=== PATIENT | male | born 1985 | race Caucasian/White ===

== ENCOUNTER 2023-05-01 13:44 | Emergency (ER) | payer BC, SELFPAY ==
[2023-05-01] VITALS (8 sets, daily range): BP systolic 97–114; BP diastolic 61–80; PULSE 62–74; RESP 16–18; TEMP 36.1; O2SAT 91–99; BMI 27.3
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
[2023-05-01 14:33] LABS: Basophils Percent Auto 0.5 % (0.0-3.0); Eosinophils Percent Auto 1.6 % (0.0-7.0); Hematocrit 47.5 % (37.0-53.0); Hemoglobin* 16.1 gm/dL (13.5-17.5); Immature Granulocytes Pct Auto 0.4 %; Lymphocytes Percent Auto 12.3 % (20-44); Mean Corpuscular HGB Conc 34 gm/dL (32-36); Mean Corpuscular Hemoglobin 27 pg (26-34); Mean Corpuscular Volume 80 fL (80-100); Monocytes Percent Auto 6.2 % (0.0-11.0); Platelet Count* 156 K/uL (140-440); RDW Coefficient of Variation % 13.2 % (11.5-15.5); Red Blood Count 5.95 m/uL (4.30-5.90); White Blood Count* 11.43 K/uL (4.50-11.00)
[2023-05-01 14:41] LABS: Slide Review Reflex No
[2023-05-01 14:46] LABS: Chloride* 105 mmol/L (96-114); Potassium* 3.7 mmol/L (3.6-5.1); Sodium* 136 mmol/L (135-149)
[2023-05-01 14:49] LABS: Carbon Dioxide* 21 mmol/L (20-32); Creatinine* 0.9 mg/dL (0.5-1.5); Est. Creatinine Clearance* 114.91; Estimated Glomerular Filt Rate 112 ml/min; Glucose* 123 mg/dL (60-115)
[2023-05-01 14:50] LABS: Blood Urea Nitrogen* 15 mg/dL (5-24); Calcium* 8.8 mg/dL (8.4-10.6)
== END 2023-05-01 15:08 | disposition home or self-care (01) ==
PROVIDERS: Emergency Provider Family Medicine
DX: R55 Syncope and collapse (principal)
CPT/HCPCS: 36415; 80048; 85025; 93005; 99283; 99284